=== PATIENT | female | born 1960 | race African-American/Black ===

== ENCOUNTER → 2018-09-08 11:42 | Outpatient (CLI) | payer BC ==
[~2018-09-08 11:42] MED LIST: CARAFATE1 G; CATAPRES0.1 MG PO; LOMOTIL TABLET1 TAB PO; MIRAPEX0.25 MG PO; MULTI-DAY VITAM1 TAB PO; NORCO 10/325 TA1 TA1 PO; NORVASC5 MG PO; PHENERGAN25 M1 PO; PROTONIX20 MG; VITAMIN D50000 UNIT
[2018-09-08 12:26] LABS: BASOPHILS 0.5 % (0-2); EOSINOPHILS 11.1 % (0-7); HEMATOCRIT 28.3 % (36.0-48.0); HEMOGLOBIN 9.4 g/dL (12-16); IMMATURE GRANULOCYTES 0.3 % (0-5); LYMPHOCYTES 16.9 % (15-50); MCH 27.5 pg (26.0-34.0); MCHC 33.2 g/dL (31.0-37.0); MCV 82.7 fL (80.0-100.0); MEAN PLATELET VOLUME 9.7 fL (7.4-10.4); NEUTROPHILS 60.2 % (40-80); RBC 3.42 10x6/uL (4.00-5.40); RDW 15.6 % (11.5-14.5); WBC 9.7 10x3/uL (4.8-10.8)
[2018-09-08 12:36] LABS: PLATELET COUNT 500 10x3/uL (130-400)
[2018-09-08 12:43] LABS: CREATININE - SERUM 1.5 mg/dL (0.6-1.3); VANCOMYCIN - TROUGH 15.8 ug/mL (10.0-20.0)
== END | disposition home or self-care (01) ==
LOC: D.LABREF 11:42
PROVIDERS: ATTEND Internal Medicine Infectious Disease
DX: T84.59XA Infection and inflammatory reaction due to other internal joint prosthesis, initial encounter (principal)

== ENCOUNTER → 2018-09-18 12:00 | Outpatient (CLI) | payer MEDICAID ==
[2018-09-18 12:45] LABS: CREATININE - SERUM 1.7 mg/dL (0.6-1.3); VANCOMYCIN - TROUGH 12.1 ug/mL (10.0-20.0)
== END | disposition home or self-care (01) ==
LOC: D.LABREF 12:00
PROVIDERS: ATTEND Internal Medicine Infectious Disease
DX: T84.59XD Infection and inflammatory reaction due to other internal joint prosthesis, subsequent encounter (principal)

== ENCOUNTER → 2018-09-25 11:26 | Outpatient (CLI) | payer MEDICAID ==
[2018-09-25 14:28] LABS: HEMATOCRIT 26.5 % (36.0-48.0); HEMOGLOBIN 8.7 g/dL (12-16); IMMATURE GRANULOCYTES 0.1 % (0-5); LYMPHOCYTES 27.4 % (15-50); MCH 27.2 pg (26.0-34.0); MCHC 32.8 g/dL (31.0-37.0); MCV 82.8 fL (80.0-100.0); MEAN PLATELET VOLUME 9.9 fL (7.4-10.4); MONOCYTES 8.4 % (2-11); NEUTROPHILS 52.1 % (40-80); RDW 16.8 % (11.5-14.5); WBC 7.2 10x3/uL (4.8-10.8)
[2018-09-25 14:41] LABS: CREATININE - SERUM 1.2 mg/dL (0.6-1.3); VANCOMYCIN - TROUGH 10.6 ug/mL (10.0-20.0)
[2018-09-25 14:44] LABS: PLATELET COUNT 653 10x3/uL (130-400)
== END | disposition home or self-care (01) ==
LOC: D.LABREF 11:26
PROVIDERS: ATTEND Internal Medicine Infectious Disease
DX: T84.59XD Infection and inflammatory reaction due to other internal joint prosthesis, subsequent encounter (principal)